=== PATIENT | female | born 1980 | race Caucasian/White ===

== ENCOUNTER → 2019-06-06 | Outpatient (CLI) | payer BC ==
[~2019-06-06] MED LIST: CHOL10005 PO; PREN-127 PO
--- NOTE | 2019-06-06 17:27 | RADIOLOGY IMAGING REPORT ---
FACILITY: [facility] - [place] PATIENT NAME: Jaclyn Gonzalez : 1980 MR: [id number] V: [id number] EXAM DATE: ORDERING PHYSICIAN: TUNDE ARELLANO TECHNOLOGIST: Location: [facility] - [place], [place] Patient: Jaclyn Gonzalez : 1980 Visit/Account:[id number] Date of Sevice: 06/06/2019 [facility] [place] ANATOMICAL SURVEY HISTORY: . COMPARISON: None. TECHNIQUE: Transabdominal imaging was performed for assessment of the fetus and maternal pelvic s tructures. Transvaginal imaging was not performed. FINDINGS: Intrauterine gestations: One. presentation: Cephalic. heart rate: 160 bpm. Amniotic fluid volume: Normal; 4-quadrant MARGIE 10.1 cm; MVP 3.7 cm. Placenta: Anterior, unremarkable and well removed from the internal os. Uterus: Gravid, otherwise grossly unremarkable where visualized. Maternal adnexa/ovaries: Grossly unremarkable, ovaries not visualized. Cervix: Grossly long and closed. Gestational Parameters: BPD: 4.7 cm 20 weeks/1 days; 53 percentile HC: 18.0 cm 20 weeks/4 days; 63 percentile AC: 15.3 cm 20 weeks/4 days; 61 percentile FL: 3.2 cm 20 weeks/1 day; 45 percentile Average ultrasound age (AUA): 20 weeks/ 3 days Estimated age based on LMP: 20 weeks/ 0 days Estimated weight (EFW): 345 grams +/- 51 grams EFW for LMP: 63rd percentile Anatomic Survey: Intracranial structures, lips and palate, 4-chamber heart, ventricular outflow tracts, stomach, kidne ys, urinary bladder, spine, 3-vessel cord and cord insertion are unremarkable. Two upper and two lowe r extremities visualized. IMPRESSION: 1. Single live intrauterine gestation; average ultrasound age 20 weeks/3 days. 2. Unremarkable anatomic survey. Report Dictated By: Maximiliano Madrigal MD at 06/06/2019 5:19 PM Report E-Signed By: Maximiliano Madrigal MD at 06/06/2019 5:22 PM [id number]
== END ==
LOC: RAD 08:54
PROVIDERS: ATTEND Obstetrics & Gynecology
DX: Z02.9 Encounter for administrative examinations, unspecified (principal)